=== PATIENT | female | born 2000 | race African-American/Black ===

== ENCOUNTER 2022-10-18 15:52 | Emergency (ER) | payer OTHER ==
[2022-10-18] MEDS ORDERED: AMOX/K CLAV 875 MG TAB ONE (16:28)
[2022-10-18] MEDS ORDERED: LIDOCAINE 100 MG/5 ML SYRINGE IV ONE (16:30)
--- NOTE | 2022-10-18 16:37 | EDPHYS ---
Physician Documentation [facility] Name: Anne-Marie Barron Age: 22 yrs Sex: Female : 2000 Arrival Date: 10/18/2022 Time: 15:52 Bed 20 Private MD: ED Physician Herberth Obrien HPI: 10/18 16:07 This 22 yrs old Female presents to ER via Unassigned with complaints of hand. snw 16:07 The patient or guardian reports pain, swelling. The complaints affect the right index snw fingernail. Onset: The symptoms/episode began/occurred acutely. Modifying factors: the symptoms are aggravated by biting nails. Associated signs and symptoms: The patient has no apparent associated signs or symptoms. The patient has not experienced similar symptoms in the past. unknown, +gravid. 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 - Social history:: Smoking status: Patient/guardian denies using tobacco, but has a distant history of tobacco abuse. ROS: 16:06 Constitutional: Negative for fever, chills, and weight loss, Eyes: Negative for injury, snw pain, redness, and discharge, ENT: Negative for injury, pain, and discharge, Neck: Negative for injury, pain, and swelling, Cardiovascular: Negative for chest pain, palpitations, and edema, Respiratory: Negative for shortness of breath, cough, wheezing, and pleuritic chest pain, Abdomen/GI: Negative for abdominal pain, nausea, vomiting, diarrhea, and constipation, Back: Negative for injury and pain, : Negative for injury, bleeding, discharge, and swelling, MS/Extremity: Negative for injury and deformity, Neuro: Negative for headache, weakness, numbness, tingling, and seizure, Psych: Negative for depression, anxiety, suicide ideation, homicidal ideation, and hallucinations. 16:06 Skin: Positive for swelling, of the right index fingernail. Exam: 16:06 Constitutional: This is a well developed, well nourished patient who is awake, alert, snw and in no acute distress. Head/Face: Normocephalic, atraumatic. Eyes: Pupils equal round and reactive to light, extra-ocular motions intact. Lids and lashes normal. Conjunctiva and sclera are non-icteric and not injected. Cornea within normal limits. Periorbital areas with no swelling, redness, or edema. Neck: Trachea midline, no thyromegaly or masses palpated, and no cervical lymphadenopathy. Supple, full range of motion without nuchal rigidity, or vertebral point tenderness. No Meningismus. Chest/axilla: Normal chest wall appearance and motion. Nontender with no deformity. No lesions are appreciated. Cardiovascular: Regular rate and rhythm with a normal S1 and S2. No gallops, murmurs, or rubs. Normal PMI, no JVD. No pulse deficits. Respiratory: Lungs have equal breath sounds bilaterally, clear to auscultation and percussion. No rales, rhonchi or wheezes noted. No increased work of breathing, no retractions or nasal flaring. 16:06 Back: No spinal tenderness. No costovertebral tenderness. Full range of motion. MS/ Extremity: Pulses equal, no cyanosis. Neurovascular intact. Full, normal range of motion. Neuro: Awake and alert, GCS 15, oriented to person, place, time, and situation. Cranial nerves II-XII grossly intact. Motor strength 5/5 in all extremities. Sensory grossly intact. Cerebellar exam normal. Normal gait. 16:06 Abdomen/GI: Inspection: gravid appearance, is noted. 16:06 Skin: Appearance: normal except for affected area, lesion(s), paronychia to right 2nd fingernail margin. Vital Signs: 16:08 BP 141 / 99; Pulse 94; Resp 18; Temp 98.7(O); Pulse Ox 100% on R/A; Weight 78.93 kg; me1 Height 5 ft. 3 in. ; 16:39 BP 126 / 95; Pulse 82; Resp 29; Pulse Ox 100% on R/A; me1 16:08 Body Mass Index 30.82 (78.93 kg, 160.02 cm) az1 Procedures: 16:35 I \T\ D: Incision and drainage was performed for an abscess of the right right index snw fingernail Prepped with Hibiclens. Anesthetized with topical lido gel. Incised with needle. Drained large amount purulent fluid. Dressing: bandaid the patient tolerated the procedure well. MDM: 15:57 Patient medically screened. snw 16:08 Differential diagnosis: bacterial infection, injury. Data reviewed: vital signs, nurses snw notes. I considered the following discharge prescriptions or medication management in the emergency department Medications were administered in the Emergency Department. See MAR. Counseling: I had a detailed discussion with the patient and/or guardian regarding the historical points, exam findings, and any diagnostic results supporting the discharge/admit diagnosis, the need for outpatient follow up, for definitive care, to return to the emergency department if symptoms worsen or persist or if there are any questions or concerns that arise at home. Response to treatment: the patient's symptoms have markedly improved after treatment. Special discussion: Based on the history and exam findings, there is no indication for further emergent testing or inpatient evaluation. I discussed with the patient/guardian the need to see the primary care provider for further evaluation of the symptoms. 16:37 ED course: Discussed pt's blood pressure elevation with and the dangers of snw PIH. 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 Appt with them on Saturday. Administered Medications: 16:22 Drug: Lidocaine Mucous Membrane Gel 2 % 1 ea Volume: 15 ml; Route: Mucous Membrane; me1 16:47 Follow up: Response: No adverse reaction me1 16:22 Drug: Amoxicillin-Clavulanate PO 875 mg Route: PO; me1 16:47 Follow up: Response: No adverse reaction me1 Disposition: 17:29 Co-signature as Attending Physician, Herberth Obrien MD I reviewed the patient's care rt provided by the Advanced Practice Provider and agree with the diagnosis and treatment plan. Disposition Summary: 10/18/22 16:36 Discharge Ordered Location: Home snw Condition: Stable snw Diagnosis - Paronychia snw - Elevated blood-pressure reading, without diagnosis of hypertension snw - state, incidental snw Followup: snw - With: Emergency Department - When: As needed - Reason: Worsening of condition Followup: snw - With: Private Physician - When: 5 - 6 days - Reason: Recheck today's complaints, Continuance of care, Re-evaluation by your physician Discharge Instructions: - Discharge Summary Sheet snw - Paronychia snw - Hand Washing snw Forms: - Medication Reconciliation Form snw - Thank You Letter snw - Antibiotic Education snw - Prescription Opioid Use snw - Patient Portal Instructions snw - Leadership Thank You Letter snw Prescriptions: - Augmentin 875-125 mg Oral Tablet - take 1 tablet by ORAL route every 12 hours for 10 days; 20 tablet; Refills: 0, snw Product Selection Permitted Signatures: Aleah Calixto, APPLICATION SOFTWARE ENGINEER-C APPLICATION SOFTWARE ENGINEER-Csnw Herberth Obrien MD MD rt Bushra De La Cruz, RN RN me1
--- NOTE | 2022-10-18 16:37 | ER ---
Nurse's Notes [facility] Name: Anne-Marie Barron Age: 22 yrs Sex: Female : 2000 Arrival Date: 10/18/2022 Time: 15:52 Bed 20 Private MD: Diagnosis: Paronychia;Elevated blood-pressure reading, without diagnosis of hypertension; state, incidental Presentation: 10/18 16:08 Chief complaint: Patient states: she chews on her nails and over the course of this me1 week her right index finger has become swollen and red. Coronavirus screen: Vaccine status: Patient reports being unvaccinated. At this time, the client does not indicate any symptoms associated with coronavirus-19. Ebola Screen: No symptoms or risks identified at this time. Initial Sepsis Screen: Does the patient meet any 2 criteria? No. Patient's initial sepsis screen is negative. Does the patient have a suspected source of infection? No. Patient's initial sepsis screen is negative. Risk Assessment: Do you want to hurt yourself or someone else? Patient reports no desire to harm self or others. Onset of symptoms was October 14, 2022. 16:08 Method Of Arrival: Ambulatory ia1 16:08 Acuity: TASHA 4 me1 Triage Assessment: 16:09 General: Appears comfortable, well groomed, well developed, well nourished, Behavior is me1 calm, cooperative, appropriate for age. Pain: Complains of pain in right hand and right index fingernail Pain does not radiate. Neuro: Level of Consciousness is awake, alert, obeys commands, Oriented to person, place, time, situation, Appropriate for age. Cardiovascular: Capillary refill < 3 seconds Patient's skin is warm and dry. Respiratory: Airway is patent Respiratory effort is even, unlabored, Respiratory pattern is regular, symmetrical. Musculoskeletal: No deficits noted. Injury Description: no injury. 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 - Social history:: Smoking status: Patient/guardian denies using tobacco, but has a distant history of tobacco abuse. Screenin:13 [facility] ED Fall Risk Assessment (Adult) History of falling in the last 3 months, me1 including since admission No falls in past 3 months (0 pts) Confusion or Disorientation No (0 pts) Intoxicated or Sedated No (0 pts) Impaired Gait No (0 pts) Mobility Assist Device Used No (0 pt) Altered Elimination No (0 pt) Score/Fall Risk Level 0 - 2 = Low Risk. Abuse screen: Denies threats or abuse. Nutritional screening: No deficits noted. Tuberculosis screening: No symptoms or risk factors identified. Assessment: 16:12 General: See triage assessment.. me1 Vital Signs: 16:08 BP 141 / 99; Pulse 94; Resp 18; Temp 98.7(O); Pulse Ox 100% on R/A; Weight 78.93 kg; me1 Height 5 ft. 3 in. ; 16:39 BP 126 / 95; Pulse 82; Resp 29; Pulse Ox 100% on R/A; me1 16:08 Body Mass Index 30.82 (78.93 kg, 160.02 cm) me1 ED Course: 15:53 Patient arrived in ED. im 15:54 Aleah Calixto FNP-C is PHCP. snw 15:54 Herberth Obrien MD is Attending Physician. snw 15:54 Aleah Calixto FNP-C is PHCP. snw 16:09 Triage completed. me1 16:09 Arm band placed on Patient placed in waiting room. me1 16:13 Patient has correct armband on for positive identification. Bed in low position. Call ia1 light in reach. Side rails up X 1. Provided Education on: POC. Verbalized understanding. . 16:13 Patient did not have IV access during this emergency room visit. me1 16:21 Bushra De La Cruz, VESNA is Primary Nurse. me1 16:58 No provider procedures requiring assistance completed. me1 Administered Medications: 16:22 Drug: Lidocaine Mucous Membrane Gel 2 % 1 ea Volume: 15 ml; Route: Mucous Membrane; me1 16:47 Follow up: Response: No adverse reaction me1 16:22 Drug: Amoxicillin-Clavulanate PO 875 mg Route: PO; me1 16:47 Follow up: Response: No adverse reaction me1 Medication: 16:13 VIS not applicable for this client. me1 Outcome: 16:36 Discharge ordered by . agnes 16:58 Discharged to home ambulatory. me1 16:58 Condition: stable 16:58 Discharge instructions given to patient, Instructed on discharge instructions, follow up and referral plans. medication usage, Demonstrated understanding of instructions, follow-up care, medications, Prescriptions given X 1. 16:58 Patient left the ED. me1 Signatures: Aleah Calixto, VENEER TAPER-C VENEER TAPER-Csnw Sharon Louis Michelle RN RN me1 Corrections: (The following items were deleted from the chart) 16:13 16:12 General: See triage noted. . me1 me1
[2022-10-18 17:04] VITALS: TEMP 98.7; O2SAT 100
[2022-10-18 17:05] VITALS: BP 126/95
== END 2022-10-18 16:58 | disposition home or self-care (01) ==
LOC: ER 15:52
PROC: 0H9FXZZ Drainage of Right Hand Skin, External Approach (ICD-10-PCS; principal; 2022-10-18)
DX: L03.011 Cellulitis of right finger (principal); R03.0 Elevated blood-pressure reading, without diagnosis of hypertension; Z33.1 Pregnant state, incidental
CPT/HCPCS: 99283